=== PATIENT | male | born 1995 | race African-American/Black ===

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

== ENCOUNTER 2017-06-22 15:44 | Emergency (ER) | payer OTHER | END 2017-06-22 17:45 | disposition home or self-care (01) | LOC: M ED 15:44 | DX: S93.401A Sprain of unspecified ligament of right ankle, initial encounter (principal); V03.10XA Pedestrian on foot injured in collision with car, pick-up truck or van in traffic accident, initial encounter; Y92.410 Unspecified street and highway as the place of occurrence of the external cause | CPT/HCPCS: 73590 ==

== ENCOUNTER 2018-05-10 16:33 | Inpatient (IN) | payer OTHER ==
[~2018-05-10] VITALS: Ht 182.9 cm; Wt 75.7 kg
[~2018-05-10 16:33] MED LIST changes: -BACITRACIN OINT 30GM As Ordered ONE; -BACITRACIN OINT 30GM TOP ONE; -BUPIVACAINE HCL 0.25% 30 ML VIAL As Ordered ONE; -BUPIVACAINE HCL 0.25% 30 ML VIAL XX ONE; +IBUP-1022 PO; -KETOROLAC 60 MG/2 ML VIAL (J1885) As Ordered ONE; -LIDOCAINE 1% SDV INJ 30 ML VIAL As Ordered ONE; -LIDOCAINE 1% SDV INJ 30 ML VIAL XX ONE; -LIDOCAINE 2% INJ 100 MG/5 ML SDV (FOR ANES.) As Ordered ONE; -LR 1,000 ML IV SCH; -METOCLOPRAMIDE INJ 10MG/2ML VIAL (J2765) As Ordered ONE; -MIDAZOLAM INJ 2 MG/2 ML VIAL (J2250) As Ordered ONE; -ONDANSETRON 4MG/2ML VIAL (J2405) As Ordered ONE; -ONDANSETRON 4MG/2ML VIAL (J2405) IV PRN; -PERCOCET 5MG/325MG TAB PO PRN; -PROPOFOL 200 MG/20 ML VIAL As Ordered ONE; -fentaNYL 100 MCG/2 ML INJECTION (J3010) As Ordered ONE; -fentaNYL 100 MCG/2 ML INJECTION (J3010) IV PRN
[2018-05-10 17:50] LABS: HEMATOCRIT 45.4 % (42.0-52.0); HEMOGLOBIN 15.5 g/dl (13.5-17.5); MEAN CORPUSCULAR HEMOGLOBIN 31.5 pg (27.0-33.0); MEAN CORPUSCULAR HGB CONC 34.1 g/dl (32.0-36.5); MEAN CORPUSCULAR VOLUME 92.3 fl (80.0-96.0); PLATELET COUNT, AUTOMATED 137 10^3/uL (150-450); RED BLOOD COUNT 4.92 10^6/uL (4.30-6.10); WHITE BLOOD COUNT 4.3 10^3/uL (4.0-10.0)
[2018-05-10 18:21] LABS: ACETAMINOPHEN LEVEL < 2.0 UG/ML (10.0-30.0); ALBUMIN 3.9 GM/DL (3.2-5.2); ALT/SGPT 24 U/L (12-78); BILIRUBIN,DIRECT 0.1 MG/DL (0.0-0.2); BILIRUBIN,TOTAL 0.4 MG/DL (0.2-1.0); BLOOD UREA NITROGEN 11 MG/DL (7-18); CALCIUM LEVEL 8.9 MG/DL (8.5-10.1); CARBON DIOXIDE LEVEL 27 MEQ/L (21-32); CHLORIDE LEVEL 105 MEQ/L (98-107); CREATININE FOR GFR 1.08 MG/DL (0.70-1.30); ETHYL ALCOHOL (ETHANOL) < 0.003 % (0.000-0.010); GLOMERULAR FILTRATION RATE > 60.0 (>60); GLUCOSE, FASTING 96 MG/DL (70-100); POTASSIUM SERUM 4.1 MEQ/L (3.5-5.1); SALICYLATE LEVEL < 1.7 MG/DL (5.0-30.0); SODIUM LEVEL 138 MEQ/L (136-145); THYROID STIMULATING HORMONE 0.887 uIU/ML (0.358-3.740); TOTAL PROTEIN 7.1 GM/DL (6.4-8.2)
[2018-05-10 18:26] LABS: AMPHETAMINES LEVEL URINE NEGATIVE (NEGATIVE); BARBITURATES URINE NEGATIVE (NEGATIVE)
[2018-05-10 18:27] LABS: BENZODIAZEPINES URINE NEGATIVE (NEGATIVE); CANNABINOIDS URINE NEGATIVE (NEGATIVE); COCAINE METABOLITE URINE NEGATIVE (NEGATIVE); METHADONE URINE NEGATIVE (NEGATIVE); OPIATES URINE NEGATIVE (NEGATIVE); PHENCYCLIDINE URINE NEGATIVE (NEGATIVE)
[2018-05-10] MEDS ORDERED: IBUP1TAB6 PO (19:19)
[2018-05-10] MEDS ORDERED: ACETAMINOPHEN TAB 650MG DOSE (2X325MG) PO PRN (20:15)
[2018-05-10] MEDS ORDERED: MAALOX 30 ML SUSP *UDC PO PRN (20:15)
[2018-05-10] MEDS ORDERED: traZODone 50 MG TAB PO PRN (20:15)
[2018-05-10] MEDS ORDERED: MOM 30ML SUSPENSION UDC PO PRN (20:15)
[2018-05-10 23:45] VITALS: BP 143/77
[2018-05-11 06:22] VITALS: BP 103/55
--- NOTE | 2018-05-11 10:28 | HPEPDOC ---
[facility] Medical History & Physical Date of Admission May 10, 2018 History and Physical PCP: [facility] ATTENDING: Dr. Zuhair Martino HPI: 23 yo M admitted to [facility] for unspecified depressive disorder, being medically examined today. No acute medical complaints today. Denies any fevers, chills, weakness, fatigue, ELMORE, CP, SOB, cough, palpitations, abdominal pain, N/V/D or changes in bowel or bladder habits. PMHx: Anxiety Depression H/O SI PSHX: phimosis/circumcision 2017 SOCHX: Resides in: 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 Illicit Drugs: Denies IV Drug Use: Denies Tattoos done unprofessionally: Denies FAMHX: Mother: Alive, well Father: Alive, well Siblings: 2 brothers, 2 sisters Alive, well Children: None Unexpected deaths due to medical reasons: None. ROS: As noted in HPI, otherwise 11pt ROS of systems reviewed and unremarkable. PE: GEN: 23 yo M, appears stated age. Well-nourished, well developed. No acute distress. Alert and oriented x 3. Affect is flat, avoids eye contact HEENT: Normocephalic, atraumatic. Pupils are equal, round, and reactive to light. Extraocular movements are intact. No nystagmus appreciated. Sclera are nonicteric. Conjunctiva without injection. Nose midline. Nasal turbinates without bogginess. EACs both patent BL. TMs both visualized and sherwood with good cone of light, no bulging or erythema. No facial asymmetry. Moist mucous membranes. Dentition fair. Pharynx pink and moist, no cobblestoning. Neck supple, trachea midline. No lymphadenopathy or thyromegaly appreciated. CHEST: Regular rate and rhythm, +S1, +S2 LUNGS: Clear to auscultation bilaterally. No wheezes, rales, or rhonchi. Breathing appears symmetric and easy. Patient is speaking in full sentences. No accessory muscle use. ABD: Round, soft, non-tender, non-distended. +Bowel sounds throughout. No rebound or guarding. No costovertebral angle tenderness. EXT: Pulses 2+ bilaterally dorsalis pedis and radial. No lower extremity edema appreciated. SKIN: Doran, dry, warm. Capillary refill <2sec. No rashes. NEURO: Alert and oriented x 3. Cranial nerves III-XII are intact. No focal deficits appreciated. EKG: Pending A&P: 23 yo M admitted to [facility] for unspecified depressive disorder 1. Psych. Plan per Psychiatry. Obtain baseline EKG to assure the safety of psychiatric medications as they can prolong the QT interval. 2. Follow up with PCP on discharge. 3. Staff member Ed present throughout exam. Vital Signs Vital Signs Date Time Temp Pulse Resp B/P (MAP) Pulse Ox O2 Delivery O2 Flow Rate FiO2 05/11/18 06:22 98.2 73 12 103/55 (71) Room Air 05/10/18 17:36 99 Laboratory Data Labs 24H Laboratory Tests 2 05/10/18 17:25: Nucleated Red Blood Cells % (auto) 0.0, Anion Gap 6L, Glomerular Filtration Rate > 60.0, Calcium Level 8.9, Aspartate Amino Transf (AST/SGOT) 26, Alanine Aminotransferase (ALT/SGPT) 24, Alkaline Phosphatase 56, Total Bilirubin 0.4, Direct Bilirubin 0.1, Total Protein 7.1, Albumin 3.9, Albumin/Globulin Ratio 1. 22, Thyroid Stimulating Hormone (TSH) 0.887, Salicylates Level < 1.7L, Urine Amphetamines Screen NEGATIVE, Urine Benzodiazepines Screen NEGATIVE, Urine Opiates Screen NEGATIVE, Urine Methadone Screen NEGATIVE, Acetaminophen Level < 2.0L, Urine Barbiturates Screen NEGATIVE, Urine Phencyclidine Screen NEGATIVE, Urine Cocaine Metabolite Screen NEGATIVE, Urine Cannabinoids Screen NEGATIVE, Ethyl Alcohol Level < 0.003 CBC/BMP Laboratory Tests 05/10/18 17:25 Red Blood Count 4.92, Mean Corpuscular Volume 92.3, Mean Corpuscular Hemoglobin 31.5, Mean Corpuscular Hemoglobin Concent 34.1, Red Cell Distribution Width 12.7 Home Medications Scheduled PRN Ibuprofen (Ibuprofen) 600 Mg Tab, 600 MG PO Q6H PRN for PAIN Allergies Coded Allergies: No Known Allergies (Unverified , 05/10/18) Aliza Atwood May 11, 2018 10:28
--- NOTE | 2018-05-11 11:40 | MHHPEPDOC ---
General Date Of Admission: May 10, 2018 Legal Status: 9.39 Chief Complaint "I want to kill myself to get these voices to go away." History of Present Illness HISTORY OF THE PRESENT ILLNESS: Patient is a 23 -year-old AD, Irish, male, with no previous psych history who was brought to ED by Raissa endorsing SI with plan to jump off building or shot himself secondary to CAH telling him to harm himself. Per ED, pt endorsing negative thoughts and AH for several weeks. Pt was on leave to see family in [facility] recently and he reported he attempted to jump from the balcony of a building but was too scared due to CAH. Pt told no one until he got back and told [facility]. Per ED, pt appeared distracted and responding to internal stimuli when seen. Pt denied HI. Pt seen today and states he was experiencing negative thoughts such as "I'm worthless, I'm a failure, I'd be better off " during leave while visiting a family friend in [facility] and attempted to jump off a building balcony but didn't due to being too scared. Pt states he had been going to [facility] for therapy which had been somewhat helpful for thoughts and didn't have that in [facility] possibly causing them to get worse, and states somewhat better now as he went [facility]. Wants therapy twice a week now to see if that helps. Pt fidgety, anxious, poor-fair eye contact, flat when seen possibly responding internal stimuli. He denies overt AH though. Spoke to pt about starting medication, Abilify, as appears therapy is not enough at this time for current psychiatric symptoms. Pt states he's Irish and his culture is against medication asking to just do therapy. Discussed with pt that at this point, based on his symptoms therapy appeared to not be enough indicating the need to start medication. Discussed process starting med, side effects, benefits, risks, process of med treatment. Pt agreed to take Abilify 5mg daily to start and see if it's beneficial. Hesitant about going to group and highly encouraged to go. Possibly paranoid. Pt denies SI/HI, delusions. Feels safe here Psychiatric Review of Systems Depression (2 or more weeks): depressed mood, difficulty concentrating, suicidal thoughts Rehana (4 or more days of): denies Psychosis: auditory hallucination, paranoia PTSD: denies Anxiety: situational anxiety, stressor related anxiety Anxiety/ 6 months or more of: restlessness, keyed up, difficulty concentrating Past Psychiatric History Previous Psychiatric Diagnosis: denies Previous Psychiatric Admissions: denies Suicide Attempts: denies Psychiatric Follow-up: [facility] Psychiatric medications: nortriptyline 25gm qhs Past Medical History Medical Problems denies Head Injury: No Seizures: No Hospitalizations: No Surgeries: No Family Medical/Psychiatric HX Medical Problems denies Psychiatric Disorders: No Addiction: No Suicide Attemps/Completions: No Addiction History nicotine Social History Childhood: born and raised [place], came to [facility], Mother and Father live in [place], [place]. 3 older brothers, 1 older sister, 1 younger sister. 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 Social Support: family Legal: denies Marital: single, never , no kids Mental Status Examination General Appearance: well groomed, appears stated age, hospital scubs/clothing Build: average Demeanor: withdrawn, guarded, very figety Eye Contact: poor Activity: anxious Behavior: cooperative, restless, withdrawn Speech: clear, spontaneous, normal volume, reg/rate,rhythm,volume Mood: depressed, anxious Mood "negative thoughts" Affect: constricted, flat, anxious Thought Process: logical/linear, depressed Thought Content (Delusions): denies SI, HI, AVH (denies AH but appears to be responding to internal stimuli), paranoia (wants to isolate), other (reports negative thoughts in his own voice) Thought Content (Other): preoccupied, guarded, internal-stimuli, appears paranoid Thought Content (Aggressive): none reported Perception (Hallucinations): auditory (pt denies but possibly responding internal stimuli) Perception (Other): none reported Cognition (Impairment of): none reported Cognition(Intelligence Est.): average Oriented: Awake, Alert, Oriented times three Insight: poor Judgment: Poor Psychosis: Psychotic Perceptions Diagnoses Psychosis Unspecified R/o paranoid schizophrenia 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 Pt withdraw, fidgety, possibly responding internal stimuli, guarded, wanting to isolate possibly due to paranoia when seen. Pt agreeable to starting Abilify which he is very hesitant about stating "It's against my [place] Culture." Denies current SI/HI, CAH, VH, delusions. Feels safe here. Initial Treatment Plan 1. Patient was admitted on a 9.39 status. 2. Complete history was obtained. 3. With patients permission, family will be contacted and database will be expanded. 4. Patients medication regimen will be reviewed and changed accordingly. 5. Patient will be provided with protected environment. 6. Patient will be treated with individual, group, and milieu therapies. 7. Patient will receive supportive psych-education. 8. Discharge planning will commence immediately. 9. Outpatient follow-up treatment will be strongly recommended. 10. The initial treatment plan will focus initially on: * Depression. * Risk for suicide. * Substance abuse. 11. abilify 5mg daily ESTIMATED LENGTH OF STAY: 5-7 DAYS. TIME SPENT COUNSELING AND COORDINATING INITIAL CARE: 60 minutes. Vital Signs Vital Signs Date Time Temp Pulse Resp B/P (MAP) Pulse Ox O2 Delivery O2 Flow Rate FiO2 05/11/18 06:22 98.2 73 12 103/55 (71) Room Air 05/10/18 17:36 99 Laboratory Data 24H Labs Laboratory Tests 2 05/10/18 17:25: Nucleated Red Blood Cells % (auto) 0.0, Anion Gap 6L, Glomerular Filtration Rate > 60.0, Calcium Level 8.9, Aspartate Amino Transf (AST/SGOT) 26, Alanine Aminotransferase (ALT/SGPT) 24, Alkaline Phosphatase 56, Total Bilirubin 0.4, Direct Bilirubin 0.1, Total Protein 7.1, Albumin 3.9, Albumin/Globulin Ratio 1.22, Thyroid Stimulating Hormone (TSH) 0.887, Salicylates Level < 1.7L, Urine Amphetamines Screen NEGATIVE, Urine Benzodiazepines Screen NEGATIVE, Urine Opiates Screen NEGATIVE, Urine Methadone Screen NEGATIVE, Acetaminophen Level < 2.0L, Urine Barbiturates Screen NEGATIVE, Urine Phencyclidine Screen NEGATIVE, Urine Cocaine Metabolite Screen NEGATIVE, Urine Cannabinoids Screen NEGATIVE, Ethyl Alcohol Level < 0.003 CBC/BMP Laboratory Tests 05/10/18 17:25 Red Blood Count 4.92, Mean Corpuscular Volume 92.3, Mean Corpuscular Hemoglobin 31.5, Mean Corpuscular Hemoglobin Concent 34.1, Red Cell Distribution Width 12.7 Medications Scheduled PRN Ibuprofen (Ibuprofen) 600 Mg Tab, 600 MG PO Q6H PRN for PAIN, (Reported) Allergies Coded Allergies: No Known Allergies (Unverified , 05/10/18) JENNA ALBERTS DO May 11, 2018 11:40 am
[2018-05-11 12:00] VITALS: BP 105/58
[2018-05-11 18:00] VITALS: BP 110/61
--- NOTE | 2018-05-11 22:28 | ECGEPIP ---
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 Electronically Signed On 05-11-2018 22:28:32 EST by Kuldeep Purdy
[2018-05-12 07:16] VITALS: BP 117/62
--- NOTE | 2018-05-12 10:50 | MHIPNPDOC ---
[facility] Progress Note Progress Note DATE OF SERVICE: 05/12/18 HISTORY: Patient is a 23 -year-old AD, Citizen Of [place], male, with no previous psych history who was brought to ED by Raissa endorsing SI with plan to jump off building or shot himself secondary to CAH telling him to harm himself. Per ED, pt endorsing negative thoughts and AH for several weeks. Pt was on leave to see family in [facility] recently and he reported he attempted to jump from the balcony of a building but was too scared due to CAH. Pt told no one until he got back and told [facility]. Per ED, pt appeared distracted and responding to internal stimuli when seen. Pt denied HI. Pt seen today and states he was experiencing negative thoughts such as "I'm worthless, I'm a failure, I'd be better off " during leave while visiting a family friend in [facility] and attempted to jump off a building balcony but didn't due to being too scared. Pt states he had been going to [facility] for therapy which had been somewhat helpful for thoughts and didn't have that in [facility] possibly causing them to get worse, and states somewhat better now as he went [facility]. Wants therapy twice a week now to see if that helps. Pt fidgety, anxious, poor-fair eye contact, flat when seen possibly responding internal stimuli. He denies overt AH though. Spoke to pt about starting medication, Abilify, as appears therapy is not enough at this time for current psychiatric symptoms. Pt states he's Citizen [place] and his culture is against medication asking to just do therapy. D iscussed with pt that at this point, based on his symptoms therapy appeared to not be enough indicating the need to start medication. Discussed process starting med, side effects, benefits, risks, process of med treatment. Pt agreed to take Abilify 5mg daily to start and see if it's beneficial. Hesitant about going to group and highly encouraged to go. Possibly paranoid. Pt denies SI/HI, delusions. Feels safe here VITAL SIGNS: See below. NEW TEST RESULTS: See below. CURRENT MEDICATIONS: See below. MENTAL STATUS EXAMINATION: General Appearance: well groomed, appears stated age, hospital scrubs/clothing Build: average Demeanor: average, pleasant Eye Contact: good Activity: calm, average Behavior: cooperative Speech: clear, spontaneous, normal volume, reg/rate,rhythm,volume Mood: euthymic Mood "much better" Affect: euthymic, full Thought Process: logical/linear, intact Thought Content (Delusions): denies SI, HI, AVH (doesn't appear to be responding to internal stimuli), denies paranoia Thought Content (Other): none reported as previous symptoms improved with abilify Thought Content (Aggressive): none reported Perception (Hallucinations): none reported Perception (Other): none reported Cognition (Impairment of): none reported Cognition(Intelligence Est.): average Oriented: Awake, Alert, Oriented times three Insight: fair Judgment: fair Psychosis: none reported DIAGNOSES: MDD recurrent, severe, w/psychosis ASSESSMENT:Pt seen and states that his mood is "much better". States he's been compliant with his ability and feels it is very beneficial as he feels calm, his negative thoughts are greatly improved, concentration is improved, is more motivated to participate social, able to feel sharon, feels like his normal self. He denies SI/HI, AH, paranoia. States he slept well last night. Feels he is tolerating his Abilify and it's beneficial. Likes it. He is attending groups and finding them helpful, playing games with peer pts when not in group, not isolating. He denies insomnia, SI/HI, hallucinations, delusions. Pt feels safe here. MANAGEMENT PLAN: continue current plan. Medications: abilify 5mg daily TIME SPENT: 30 minutes. Vital Signs Vital Signs Date Time Temp Pulse Resp B/P (MAP) Pulse Ox O2 Delivery O2 Flow Rate FiO2 05/12/18 07:16 98.8 85 16 117/62 (80) 05/11/18 06:22 Room Air 05/10/18 17:36 99 Current Medications Current Medications Acetaminophen (Tylenol Tab) 650 mg Q6HP PRN PO HEADACHE or DISCOMFORT; Start 05/10/18 at 20:15 Al Hydrox/Mg Hydrox/Simethicone (Mylanta) 30 ml Q4HP PRN PO HEARTBURN/INDIGESTION; Start 05/10/18 at 20:15 Aripiprazole (AbiLIFY) 5 mg DAILY PO Last administered on 05/12/18at 08:17; Start 05/12/18 at 09:00 Home Med (Med Rec Complete!) ASDIRECTED XX ; Start 05/10/18 at 19:30; Stop 05/10/18 at 19:30; Status DC Magnesium Hydroxide (Milk Of Magnesia) 30 ml DAILYPRN PRN PO CONSTIPATION; Sta rt 05/10/18 at 20:15 Trazodone HCl (Desyrel) 50 mg QHSP PRN PO INSOMNIA; Start 05/10/18 at 20:15 Allergies Coded Allergies: No Known Allergies (Unverified , 05/10/18) JENNA ALBERTS DO May 12, 2018 10:50 am
[2018-05-12 12:00] VITALS: BP 105/58
[2018-05-12 18:00] VITALS: BP 115/63
[2018-05-12 21:00] VITALS: BP 110/56
[2018-05-13 06:09] VITALS: BP 99/54
--- NOTE | 2018-05-13 10:08 | MHIPNPDOC ---
[facility] Progress Note Progress Note DATE OF SERVICE: 05/13/18 HISTORY: Patient is a 23 -year-old AD, [place], male, with no previous psych history who was brought to ED by Raissa endorsing SI with plan to jump off building or shot himself secondary to CAH telling him to harm himself. Per ED, pt endorsing negative thoughts and AH for several weeks. Pt was on leave to see family in [facility] recently and he reported he attempted to jump from the balcony of a building but was too scared due to CAH. Pt told no one until he got back and told [facility]. Per ED, pt appeared distracted and responding to internal stimuli when seen. Pt denied HI. Pt seen today and states he was experiencing negative thoughts such as "I'm worthless, I'm a failure, I'd be better off " during leave while visiting a family friend in [facility] and attempted to jump off a building balcony but didn't due to being too scared. Pt states he had been going to [facility] for therapy which had been somewhat helpful for thoughts and didn't have that in [facility] possibly causing them to get worse, and states somewhat better now as he went [facility]. Wants therapy twice a week now to see if that helps. Pt fidgety, anxious, poor-fair eye contact, flat when seen possibly responding internal stimuli. He denies overt AH though. Spoke to pt about starting medication, Abilify, as appears therapy is not enough at this time for current psychiatric symptoms. Pt states he's [place] and his culture is against medication asking to just do therapy. D iscussed with pt that at this point, based on his symptoms therapy appeared to not be enough indicating the need to start medication. Discussed process starting med, side effects, benefits, risks, process of med treatment. Pt agreed to take Abilify 5mg daily to start and see if it's beneficial. Hesitant about going to group and highly encouraged to go. Possibly paranoid. Pt denies SI/HI, delusions. Feels safe here VITAL SIGNS: See below. NEW TEST RESULTS: See below. CURRENT MEDICATIONS: See below. MENTAL STATUS EXAMINATION: General Appearance: well groomed, appears stated age, hospital scrubs/clothing Build: average Demeanor: average, pleasant Eye Contact: good Activity: calm, average Behavior: cooperative Speech: clear, spontaneous, normal volume, reg/rate,rhythm,volume Mood: euthymic Mood "good" Affect: euthymic, full Thought Process: logical/linear, intact Thought Content (Delusions): denies SI, HI, AVH (doesn't appear to be responding to internal stimuli), denies paranoia Thought Content (Other): none reported as previous symptoms improved with abilify Thought Content (Aggressive): none reported Perception (Hallucinations): none reported Perception (Other): none reported Cognition (Impairment of): none reported Cognition(Intelligence Est.): average Oriented: Awake, Alert, Oriented times three Insight: fair Judgment: fair Psychosis: none reported DIAGNOSES: MDD recurrent, severe, w/psychosis ASSESSMENT:Pt seen and states that his mood is "good". States he's been compliant with his ability and feels it is very beneficial but believes it's making him tired during the day. Agreeable to changing dose to at night. Negative thoughts, concentration, anxiety greatly improved with Abiilify he states. Feels like his normal self. He denies SI/HI, AH, paranoia. States he slept well last night. Feels he is tolerating his Abilify and it's beneficial. Likes it. He is attending with active participation in groups and finding them helpful, playing games with peer pts when not in group, not isolating. He denies insomnia, SI/HI, hallucinations, delusions. Pt feels safe here. MANAGEMENT PLAN: continue current plan. Change abilify to nightly for fatigue Medications: abilify 5mg qhs TIME SPENT: 30 minutes. Vital Signs Vital Signs Date Time Temp Pulse Resp B/P (MAP) Pulse Ox O2 Delivery O2 Flow Rate FiO2 05/13/18 06:09 97.8 76 14 99/54 (69) Room Air 05/10/18 17:36 99 Current Medications Current Medications Acetaminophen (Tylenol Tab) 650 mg Q6HP PRN PO HEADACHE or DISCOMFORT; Start 05/10/18 at 20:15 Al Hydrox/Mg Hydrox/Simethicone (Mylanta) 30 ml Q4HP PRN PO HEARTBURN/INDIGE STION; Start 05/10/18 at 20:15 Aripiprazole (AbiLIFY) 5 mg DAILY PO Last administered on 05/13/18at 08:12; Start 05/12/18 at 09:00 Home Med (Med Rec Complete!) ASDIRECTED XX ; Start 05/10/18 at 19:30; Stop 05/10/18 at 19:30; Status DC Magnesium Hydroxide (Milk Of Magnesia) 30 ml DAILYPRN PRN PO CONSTIPATION; Start 05/10/18 at 20:15 Trazodone HCl (Desyrel) 50 mg QHSP PRN PO INSOMNIA; Start 05/10/18 at 20:15 Allergies Coded Allergies: No Known Allergies (Unverified , 05/10/18) JENNA ALBERTS DO May 13, 2018 10:08
[2018-05-13 18:00] VITALS: BP 112/80
[2018-05-14 06:00] VITALS: BP 112/56
--- NOTE | 2018-05-14 16:59 | MHIPN ---
DATE: 05/14/2018 CHIEF COMPLAINT: Says feels a bit okay. SUBJECTIVE: Seen for followup. He is seen in the presence of staff. Says feels a bit okay, in that he is somewhat less anxious, remains depressed, denies any suicidal thoughts or intents, but is somewhat vague on this. Says has not had any overt periods where he has heard his own thoughts, says suggests these are his own thoughts rather than outside his head. Has experienced them for the last year so, possibly longer. Says sleep was fair, appetite is okay, and suggested that he had wanted to eat more when he was distressed lately. Also says has had erections which a little bit painful when using the Abilify, has had two doses, and this was before he received any trazodone, which he has taken on one occasion. Says is in touch with his family, but he last had contact with them about 2 weeks ago. MENTAL STATUS EXAMINATION: He is neat. He is cooperative. He has no agitation, no psychomotor retardation. He is coherent. Affect restricted in range, congruent with mood. Denies any suicidal thoughts or intents. No homicidal ideas or intents at present. Does not appear to be internally preoccupied. No delusional ideations elicited. Cognition is grossly intact. Judgment and insight quite questionable. ASSESSMENT: Major depressive disorder, recurrent, severe, possibly with psychotic features. Remains depressed, and anxious. Has possibly had side effects, priapism, using the Abilify. He has also had trazodone as well. PLAN: In view of the above, I would suggest discontinuing the Abilify, as the side effects potentially outweigh the benefits. I would discontinue the trazodone as well. The patient is offered Ambien at a low dose, at 5 mg, to help with his sleep, he declines that. Given the course of his difficulties, I would suggest that he consider using an antidepressant, such as Prozac, or other selective-serotonin reuptake inhibitor (SSRI), to help address his mood. After much discussion, he declines that, says would prefer to continue with therapy, and that he would wish to discuss with his therapist first, before agreeing to medications. He says he is due to leave in a couple of days, and would wish to continue at [facility]. He also cites "cultural reasons" for declining medicine. This is gently challenged, but unsuccessfully. I would encourage the patient to participate in activities in the unit. It is important that he consider using medicines in addition to the psychotherapy, has been struggling with his emotions for the better part of the last 2-1/2 years or so. Has had audible thoughts, if not auditory hallucinations, for a substantial portion of time as well. At this point, it is not safe, in my opinion, for the patient to be discharged, and that ought to be reassessed. Vital signs: Blood pressure 112/56, pulse 57, temperature 98.5.
[2018-05-14 18:00] VITALS: BP 115/66
[2018-05-15 06:00] VITALS: BP 108/61
[2018-05-15 18:00] VITALS: BP 115/60
[2018-05-16 06:13] VITALS: BP 115/57
--- NOTE | 2018-05-16 09:07 | MHDSPDOC ---
[facility] Discharge Summary Discharge Summary DATE OF ADMISSION: May 10, 2018 at 8:13 pm DATE OF DISCHARGE: May 16, 2018 DISCHARGE DIAGNOSES: MDD recurrent, severe, w/psychosis REASON FOR ADMISSION: Patient is a 23 -year-old AD, [place], male, with no previous psych history who was brought to ED by Raissa endorsing SI with plan to jump off building or shot himself secondary to CAH telling him to harm himself. Per ED, pt endorsing negative thoughts and AH for several weeks. Pt was on leave to see family in [facility] recently and he reported he attempted to jump from the balcony of a building but was too scared due to [facility]. Pt told no one until he got back and told [facility]. Per ED, pt appeared distracted and responding to internal stimuli when seen. Pt denied HI. Pt seen today and states he was experiencing negative thoughts such as "I'm worthless, I'm a failure, I'd be better off " during leave while visiting a family friend in [facility] and attempted to jump off a building balcony but didn't due to being too scared. Pt states he had been going to [facility] for therapy which had been somewhat helpful for thoughts and didn't have that in [facility] possibly causing them to get worse, and states somewhat better now as he went [facility]. Wants therapy twice a week now to see if that helps. Pt fidgety, anxious, poor-fair eye contact, flat when seen possibly responding internal stimuli. He denies overt AH though. Spoke to pt about starting medication, Abilify, as appears therapy is not enough at this time for current psychiatric symptoms. Pt states he's [place] and his culture is against medication asking to just do therapy. D iscussed with pt that at this point, based on his symptoms therapy appeared to not be enough indicating the need to start medication. Discussed process starting med, side effects, benefits, risks, process of med treatment. Pt agreed to take Abilify 5mg daily to start and see if it's beneficial. Hesitant about going to group and highly encouraged to go. Possibly paranoid. Pt denies SI/HI, delusions. Feels safe here CONSULTANTS INVOLVED: none TREATMENT AND PROGRESS ON THE UNIT : Pt was admitted to [facility], seen for psychiatric assessment and started on abilify 5mg daily for mood and AH. He was provided trazodone 50mg qhs prn insomnia. Pt found his medications beneficial and tolerated them well. His mood improved to euthymic, bright range and he denied AH with the start of Abilify. He attended groups daily during his stay. His symptoms improved with treatment. On day of discharge he denied depression, anxiety, insomnia, SI/HI, hallucinations, delusions. He was discharged home after Raissa meeting with follow-up at [facility]. He felt safe for discharge. DISCHARGE ASSESSMENT: Pt seen and states that his mood is "good"and he's looking forward to being discharged with his Raissa. States he's been compliant with his ability and feels it is very beneficial . Negative thoughts, concentration, anxiety greatly improved with Abilify he states. Feels like his normal self. He denies SI/HI, AH, paranoia. States he slept well last night. Feels he is tolerating his Abilify and it's beneficial. Likes it. He is attending with active participation in groups and finding them helpful, playing games with peer pts when not in group, not isolating. He denies depression, anxiety, insomnia, SI/HI, hallucinations, delusions, paranoia. Pt feels safe to be discharged home with Raissa. MENTAL STATUS EXAMINATION ON DISCHARGE: General Appearance: well groomed, appears stated age, hospital scrubs/clothing Build: average Demeanor: average, pleasant Eye Contact: good Activity: calm, average Behavior: cooperative Speech: clear, spontaneous, normal volume, reg/rate,rhythm,volume Mood: euthymic Mood "good" Affect: euthymic, full Thought Process: logical/linear, intact Thought Content (Delusions): denies SI, HI, AVH , denies paranoia Thought Content (Other): none reported Thought Content (Aggressive): none reported Perception (Hallucinations): none reported Perception (Other): none reported Cognition (Impairment of): none reported Cognition(Intelligence Est.): average Oriented: Awake, Alert, Oriented times three Insight: good Judgment: good Psychosis: none reported MEDICATIONS ON DISCHARGE: abilify 5mg qhs PLAN/FOLLOWUP ARRANGEMENTS: D/c home with Raissa with follow-up at [facility]. The amount of time spent in the coordination of care for this patient was approximately 30 minutes. Vital Signs/I&Os Vital Signs Date Time Temp Pulse Resp B/P (MAP) Pulse Ox O2 Delivery O2 Flow Rate FiO2 05/16/18 06:13 98.3 80 12 115/57 (76) Room Air 05/10/18 17:36 99 Medications Scheduled PRN Ibuprofen (Ibuprofen) 600 Mg Tab, 600 MG PO Q6H PRN for PAIN, (Reported) Allergies Coded Allergies: No Known Allergies (Unverified , 05/10/18) JENNA ALBERTS DO May 16, 2018 9:06 am
--- NOTE | 2018-05-16 09:44 | MHIPN ---
DATE: 05/15/2018 CHIEF COMPLAINT: Says feels okay. SUBJECTIVE: Seen for followup. Indicates slept well. Appetite is okay. Says has been watching football. MENTAL STATUS EXAMINATION: Neat. Cooperative. Coherent. Affect restricted in range overall, but broader than yesterday. Denies suicidal thoughts or intents. At present no delusions elicited. Does not appear to be internally preoccupied. Cognition is grossly intact. Judgment and insight remain questionable. ASSESSMENT: Major depressive disorder, recurrent, severe, possibly with psychotic features. PLAN: He declines using medicine to help with his emotional state, he is to be encouraged to participate in activities in the unit. Says has a chain of command meeting tomorrow. He will see the psychiatrist as well as the treatment team tomorrow as well. VITAL SIGNS: Blood pressure 108/61, pulse 94, temperature 99.2.
[2018-05-16] MEDS ORDERED: ABIL1TAB11 PO (11:16)
== END 2018-05-16 12:02 | disposition home or self-care (01) | DRG 885 ==
LOC: M ED 16:33 → M ED INP 20:13 → M PSY 23:40
PROVIDERS: ADMIT Psychiatry & Neurology Psychiatry; ATTEND Psychiatry & Neurology Psychiatry
DX: F33.3 Major depressive disorder, recurrent, severe with psychotic symptoms (principal)

== ENCOUNTER 2018-07-16 13:49 | Emergency (ER) | payer OTHER ==
[~2018-07-16] VITALS: Ht 182.9 cm; Wt 77.3 kg
[~2018-07-16 13:49] MED LIST changes: +ABIL1TAB11 PO; +IBUP1TAB6 PO
[2018-07-16] MEDS ORDERED: OYST500T91 PO (14:02)
[2018-07-16] MEDS ORDERED: ONDANSETRON 4 MG ORAL DISINTEGRATING TAB (Q0162 PER 1MG) PO ONE (16:00)
[2018-07-16] MEDS ORDERED: ACETAMINOPHEN 325 MG TAB PO ONE (16:00)
[2018-07-16 17:40] VITALS: BP 140/76
[2018-07-16] MEDS ORDERED: IBUP-1022 PO (17:53)
--- NOTE | 2018-07-16 18:45 | REP ---
Lumbar spine five views History: Back pain There is no acute fracture or subluxation. Intervertebral discs are normal in height. The facet joints are normal in appearance. Impression: There is no acute fracture or subluxation. Electronically Signed by Eric Calvert MD 07/16/2018 06:37 P
--- NOTE | 2018-07-16 18:46 | REP ---
Left ankle four views History: Trauma There is no acute fracture or dislocation. The joint space is normal in appearance. Impression: There is no acute fracture or dislocation. Electronically Signed by Eric Calvert MD 07/16/2018 06:38 P
--- NOTE | 2018-07-16 18:48 | REP ---
Right wrist four views History: Trauma There is no acute fracture or dislocation. The joint spaces are normal in appearance. Impression: There is no acute fracture or dislocation. Electronically Signed by Eric Calvert MD 07/16/2018 06:40 P
== END 2018-07-16 18:07 | disposition home or self-care (01) ==
LOC: M ED 13:49
DX: S93.402A Sprain of unspecified ligament of left ankle, initial encounter (principal); S63.501A Unspecified sprain of right wrist, initial encounter; M62.830 Muscle spasm of back; W18.2XXA Fall in (into) shower or empty bathtub, initial encounter; Y92.091 Bathroom in other non-institutional residence as the place of occurrence of the external cause; F41.0 Panic disorder [episodic paroxysmal anxiety]; Z79.899 Other long term (current) drug therapy
CPT/HCPCS: 72110; 73110; 73610; 99284; Q0162

== ENCOUNTER 2018-08-18 15:56 | Emergency (ER) | payer OTHER ==
[~2018-08-18] VITALS: Ht 182.9 cm; Wt 75.0 kg
[~2018-08-18 15:56] MED LIST changes: +OYST500T91 PO
[2018-08-18] MEDS ORDERED: ZONI25CA2 (16:01)
[2018-08-18] MEDS ORDERED: NORT25CA2 (16:01)
[2018-08-18] MEDS ORDERED: diphenhydrAMINE INJ 50MG/ML VIAL (J1200) IV STA (16:26)
[2018-08-18] MEDS ORDERED: NS 1,000 ML IV ONE (16:30)
[2018-08-18] MEDS ORDERED: KETOROLAC 30 MG/ML VIAL (J1885) IV ONE (16:30)
[2018-08-18] MEDS ORDERED: METOCLOPRAMIDE INJ 10MG/2ML VIAL (J2765) IV ONE (16:30)
[2018-08-18] MEDS ORDERED: MAG SULF 1GM/100ML (MAG RUN) 1 GM in APPROPRIATE DILUENT 1 EA IV ONE (18:15)
--- NOTE | 2018-08-18 21:49 | REPVR ---
EXAM: CT Head Without Contrast EXAM DATE/TIME: 08/18/2018 9:12 PM CLINICAL HISTORY: 23 years old, male; Pain; Headache not specified; Additional info: [facility]MORE TECHNIQUE: Imaging protocol: Axial computed tomography images of the head/brain without contrast. Radiation optimization: All CT scans at this facility use at least one of these dose optimization techniques: automated exposure control; mA and/or kV adjustment per patient size (includes targeted exams where dose is matched to clinical indication); or iterative reconstruction. COMPARISON: CT Head without contrast 01/12/2016 8:54 AM FINDINGS: Brain: Normal. No hemorrhage. No significant white matter disease. No edema. Ventricles: Normal. No ventriculomegaly. Bones/joints: Unremarkable. No acute fracture. Sinuses: Visualized sinuses are unremarkable. No acute sinusitis. Mastoid air cells: Visualized mastoid air cells are unremarkable. No mastoid effusion. Soft tissues: Unremarkable. IMPRESSION: Negative noncontrast head CT, unchanged from 01/12/2016. Electronically signed by: Bob Aldrich On 08/18/2018 21:49:29 PM
[2018-08-18] MEDS ORDERED: ZONISAMIDE 100 MG CAP (ZONEGRAN) PO ONE (22:15)
[2018-08-18] MEDS ORDERED: VALPROATE SOD INJ 1,000 MG in D5W 50 ML IV ONE (22:15)
[2018-08-18] MEDS ORDERED: ZONI100C2 PO (23:08)
[2018-08-18 23:53] VITALS: BP 129/87
== END 2018-08-18 23:54 | disposition home or self-care (01) ==
LOC: M ED 15:56
DX: G43.709 Chronic migraine without aura, not intractable, without status migrainosus (principal); F41.0 Panic disorder [episodic paroxysmal anxiety]; G47.33 Obstructive sleep apnea (adult) (pediatric); Z79.899 Other long term (current) drug therapy
CPT/HCPCS: 70450; 82375; 96361; 96365; 96367; 96375; 99284; J1200; J1885; J2765; J3475

== ENCOUNTER 2018-08-25 14:15 | Emergency (ER) | payer OTHER ==
[~2018-08-25] VITALS: Ht 182.9 cm; Wt 78.0 kg
[~2018-08-25 14:15] MED LIST changes: +NORT25CA2; +ZONI100C2 PO; +ZONI25CA2
[2018-08-25] MEDS ORDERED: GABA-843 (14:24)
[2018-08-25 15:34] LABS: BASO # 0.1 10^3/uL (0.0-0.2); BASO % 0.9 % (0.0-1.0); EOS # 0.1 10^3/uL (0.0-0.50); EOS % 0.9 % (0.0-3.0); HEMATOCRIT 43.9 % (42.0-52.0); HEMOGLOBIN 15.3 g/dl (13.5-17.5); LYMPH # 2.4 10^3/uL (1.5-6.5); LYMPH % 43.1 % (24.0-44.0); MEAN CORPUSCULAR HEMOGLOBIN 32.6 pg (27.0-33.0); MEAN CORPUSCULAR HGB CONC 34.9 g/dl (32.0-36.5); MEAN CORPUSCULAR VOLUME 93.4 fl (80.0-96.0); MONO # 0.5 10^3/uL (0.0-0.8); MONO % 9.3 % (0.0-5.0); NEUTROPHILS # 2.6 10^3/uL (1.8-7.7); NEUTROPHILS % 45.6 % (36.0-66.0); PLATELET COUNT, AUTOMATED 150 10^3/uL (150-450); WHITE BLOOD COUNT 5.6 10^3/uL (4.0-10.0)
[2018-08-25 15:54] LABS: ALBUMIN 3.8 GM/DL (3.2-5.2); ALT/SGPT 26 U/L (12-78); BILIRUBIN,DIRECT 0.1 MG/DL (0.0-0.2); BILIRUBIN,TOTAL 0.3 MG/DL (0.2-1.0); BLOOD UREA NITROGEN 14 MG/DL (7-18); CALCIUM LEVEL 9.1 MG/DL (8.5-10.1); CARBON DIOXIDE LEVEL 29 MEQ/L (21-32); CHLORIDE LEVEL 107 MEQ/L (98-107); CREATININE FOR GFR 1.21 MG/DL (0.70-1.30); GLOMERULAR FILTRATION RATE > 60.0 (>60); GLUCOSE, FASTING 94 MG/DL (70-100); LIPASE 114 U/L (73-393); POTASSIUM SERUM 3.8 MEQ/L (3.5-5.1); SODIUM LEVEL 140 MEQ/L (136-145)
[2018-08-25 16:32] VITALS: BP 137/80
== END 2018-08-25 16:34 | disposition home or self-care (01) ==
LOC: M ED 14:15
DX: R10.9 Unspecified abdominal pain (principal); G89.29 Other chronic pain; R19.7 Diarrhea, unspecified; G47.33 Obstructive sleep apnea (adult) (pediatric); F41.0 Panic disorder [episodic paroxysmal anxiety]; Z79.899 Other long term (current) drug therapy

== ENCOUNTER 2018-09-08 19:07 | Emergency (ER) | payer OTHER ==
[~2018-09-08] VITALS: Ht 188 cm; Wt 77.3 kg
[~2018-09-08 19:07] MED LIST changes: +GABA-843
[2018-09-08] MEDS ORDERED: SUMA50TA2 PO (19:26)
[2018-09-08] MEDS ORDERED: diphenhydrAMINE INJ 50MG/ML VIAL (J1200) IV ONE (20:30)
[2018-09-08] MEDS ORDERED: ACETAMINOPHEN 325 MG TAB PO ONE (20:30)
[2018-09-08] MEDS ORDERED: METOCLOPRAMIDE INJ 10MG/2ML VIAL (J2765) IV ONE (20:30)
[2018-09-08] MEDS ORDERED: dexameTHASONE 20 MG/5 ML VIAL (J1100) IV ONE (20:30)
[2018-09-08] MEDS ORDERED: NS 1,000 ML IV ONE (20:30)
[2018-09-08] MEDS ORDERED: VALPROATE SOD INJ 1,000 MG in D5W 50 ML IV ONE (22:30)
[2018-09-08] MEDS ORDERED: SUMAtriptan SUCCINATE 6 MG/0.5 ML VIAL SC ONE (22:30)
[2018-09-08] MEDS ORDERED: MAG SULF 1GM/100ML (MAG RUN) 1 GM in APPROPRIATE DILUENT 1 EA IV ONE (22:30)
[2018-09-08 23:47] VITALS: BP 130/76
== END 2018-09-09 00:08 | disposition home or self-care (01) ==
LOC: M ED 19:07
DX: G43.909 Migraine, unspecified, not intractable, without status migrainosus (principal); Z79.899 Other long term (current) drug therapy
CPT/HCPCS: 96361; 96365; 96375; 99284; J1100; J1200; J2765; J3475